=== PATIENT | female | born 1970 | race Caucasian/White ===

== ENCOUNTER → 2017-04-13 | Outpatient (CLI) | payer BC ==
--- NOTE | 2017-04-13 10:16 | Diagnostic Imaging Report ---
PROCEDURE: MRI lumbar spine. TECHNIQUE: Multiplanar, multisequence MRI of the lumbar spine was performed without contrast. INDICATION: Chronic low back pain with intermittent leg pain. No comparison is available. FINDINGS: Alignment of lumbar spine is within normal limits. Vertebral body heights are maintained. There is no focal marrow signal abnormality demonstrated to suggest an acute osseous injury but there are multilevel degenerative endplate changes most significant at L1-2, L3-4 and L4-5 where there is disc degeneration and desiccation at each level. The distal thoracic cord demonstrates no signal abnormality. The conus terminates at a normal level. There is no significant lower thoracic canal stenosis. At L1-2 there is disc degeneration and mild disc bulging with a small annular tear. There is mild narrowing of central canal. There is no significant lateral recess or neuroforaminal stenosis. L2-3 is unremarkable. L3-4 disc degeneration, mild disc bulging and facet arthropathy are present. There is minimal narrowing of the central canal and mild effacement of lateral recesses. There is mild right and moderate left neural foraminal stenosis. There appears to be a small left foraminal disc protrusion. At the L4-5 level there is disc degeneration and diffuse disc bulging as well as a left paracentral disc extrusion. There is also facet arthropathy and ligamentous thickening. There is moderate narrowing of the central canal. There is severe left lateral recess stenosis and mild/moderate narrowing of the right. There is moderate bilateral neural foraminal stenosis. At L5-S1 there is no significant canal, lateral recess stenosis. There is minimal narrowing of the neural foramina. Paraspinal soft tissues unremarkable. The aorta is normal in caliber. The kidneys appear nonobstructed. IMPRESSION: 1. No MR evidence of an acute osseous abnormality or malalignment. 2. Multilevel degenerative disc disease and facet arthropathy with variable degrees of stenosis detailed above. Most significant findings are that of a large left paracentral disc extrusion at the L4-5 level which results in severe left lateral recess stenosis and likely impinges on the descending left L5 nerve root. Other less significant degenerative features are detailed above level by level. Dictated by: Dictated on workstation # [id number]
== END ==
LOC: RAD 09:33
PROVIDERS: ATTEND Family Medicine
DX: M48.061 Spinal stenosis, lumbar region without neurogenic claudication (principal); M47.26 Other spondylosis with radiculopathy, lumbar region; M51.26 Other intervertebral disc displacement, lumbar region; M51.16 Intervertebral disc disorders with radiculopathy, lumbar region; M46.96 Unspecified inflammatory spondylopathy, lumbar region
CPT/HCPCS: 72148

== ENCOUNTER → 2017-07-24 | Outpatient (CLI) | payer BC ==
--- NOTE | 2017-07-24 15:15 | Diagnostic Imaging Report ---
INDICATION: Pelvic bleeding for approximately one week. TECHNIQUE: Multiple real-time grayscale sonographic images were obtained of the pelvis transabdominally and transvaginally. CORRELATION STUDY: None. FINDINGS: UTERUS/ENDOMETRIUM: Uterus measures 7.6 x 4.5 x 3.7 cm. Endometrial thickness is 5 mm. A few nonspecific tiny what appear to be likely cystic areas adjacent to the endometrium. Endometrium is otherwise unremarkable. RIGHT OVARY: Not visualized. LEFT OVARY: Not visualized. Ovaries are not visualized could be owing to position or obscuration by overlying bowel gas. Definitive adnexal mass lesion is not suggested. No significant free pelvic fluid. IMPRESSION: 1. Nonvisualization of either ovary may be owing to position versus obscuration by bowel gas. 2. Endometrial thickness within normal limits for a premenopausal patient. There are a few tiny nonspecific cysts along the endometrium. Given history, I would recommend short-term follow-up imaging preferably after two or three menstrual cycles for reassessment. Dictated by: Dictated on workstation # [id number]
== END ==
LOC: RAD 13:02
PROVIDERS: ATTEND Nurse Practitioner Family
DX: R93.8 Abnormal findings on diagnostic imaging of other specified body structures (principal)
CPT/HCPCS: 76830; 76856

== ENCOUNTER → 2017-11-25 | Outpatient (CLI) | payer BC ==
--- NOTE | 2017-11-25 16:32 | Diagnostic Imaging Report ---
Indication: Left clavicle injury with pain AP and angled views of the left clavicle are obtained. FINDINGS: No acute fracture or dislocation is identified. No abnormal lytic or sclerotic focus is seen, and there is no radiopaque foreign body. IMPRESSION: No acute abnormality. Dictated by: Dictated on workstation # [id number]
== END ==
LOC: RAD 16:11
PROVIDERS: ATTEND Family Medicine
DX: S49.92XA Unspecified injury of left shoulder and upper arm, initial encounter (principal)
CPT/HCPCS: 73000

== ENCOUNTER → 2021-12-26 | Outpatient (CLI) | payer BC ==
--- NOTE | 2021-12-26 16:13 | Diagnostic Imaging Report ---
INDICATION: Routine screening COMPARISON: No prior mammograms are available for comparison. This is a baseline study. 2-D and 3-D bilateral screening mammography was performed with CAD. Both breasts are heterogeneously dense, limiting the sensitivity of mammography. There are benign calcifications bilaterally. No mass or malignant-appearing microcalcifications are seen. Axillae are unremarkable. IMPRESSION: BI-RADS Category 2. No mammographic features suspicious for malignancy are identified. ACR BI-RADS Category 2: Benign findings. Result letter will be mailed to the patient. Note: At least 10% of breast cancer is not imaged by mammography. Dictated by: Dictated on workstation # [id number]
== END ==
LOC: RAD 13:30
PROVIDERS: ATTEND Nurse Practitioner Family
DX: Z12.31 Encounter for screening mammogram for malignant neoplasm of breast (principal)
CPT/HCPCS: 77063; 77067